=== PATIENT | female | born 1945 | race Caucasian/White ===

== ENCOUNTER 2016-12-14 10:44 | Emergency (ER) | payer MEDICARE ==
[2016-12-14 10:59] VITALS: BP 116/55
--- NOTE | 2016-12-14 12:10 | UC ---
Respiratory Complaint HPI - HPI Summary HPI Summary: C/O URI SX FOR ABOUT A WEEK - ST, COUGH, PND. NO FEVER. LAST NIGHT WOKE UP 1: 30AM WITH SEVERE, SHARP RIGHT SIDED PLEURITIC CHEST PAIN. EASED UP WITH IBUPROFEN. PT CONCERNED FOR PNA. FORMER SMOKER. REPORTS SHE HAS WHEEZING AT BASELINE BUT DOES NOT USE ANY INHALERS OR BREATHING TX. DOES NOT FEEL SOB. DOES NOT USE O2 THERAPY. STATES HER O2 SAT IS PROBABLY LOW 90S AT BASELINE. - History of Current Complaint Chief Complaint: UCChestPain Stated Complaint: SOB COPD UPPER RT CHEST PAIN Time Seen by Provider: 12/14/16 10:49 Hx Obtained From: Patient Onset/Duration: Gradual Onset, Lasting Days, Still Present Timing: Constant Severity Initially: Moderate Severity Currently: Moderate Pain Intensity: 3 Pain Scale Used: 0-10 Numeric Character: Cough: Nonproductive Aggravating Factors: Nothing Alleviating Factors: Nothing Associated Signs And Symptoms: Positive: Pleuritic Chest Pain, Wheezing, URI, Nasal Congestion. 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 Denies: Hypertension Respiratory History Of: Reports: COPD Denies: Asthma GI/ History Of: Denies: Ulcer, Renal Disease - Surgical History Surgical History: Yes Surgery Procedure, Year, and Place: colostomy, appendectomy, hernia repair - Family History Known Family History: Negative: Cardiac Disease, Hypertension, Diabetes - Social History Alcohol Use: None Substance Use Type: None Smoking Status (MU): Former Smoker Type: Cigarettes Review of Systems Constitutional: Negative Respiratory: Cough, Other - PLEURITIC PAIN Cardiovascular: Negative Gastrointestinal: Negative All Other Systems Reviewed And Are Negative: Yes Physical Exam Triage Information Reviewed: Yes Appearance: Well-Appearing, No Pain Distress, Well-Nourished Vital Signs: Initial Vital Signs Temp 97.6 F 12/14/16 10:50 Pulse 77 12/14/16 10:50 Resp 22 12/14/16 10:50 BP 116/55 12/14/16 10:50 Pulse Ox 93 12/14/16 10:50 Vital Signs Reviewed: Yes Eyes: Positive: Conjunctiva Clear ENT: Positive: Hearing grossly normal Neck: Positive: Supple, Nontender, No Lymphadenopathy Respiratory Exam: Normal Cardiovascular Exam: Normal Abdomen Description: Positive: Soft Musculoskeletal: Positive: No Edema Neurological: Positive: Alert Psychological: Positive: Age Appropriate Behavior Skin: Negative: rashes UC Diagnostic Evaluation - Laboratory O2 Sat by Pulse Oximetry: 93 - Radiology Xray Interpretation: No Acute Changes - CXR SHOWS COPD Radiology Interpretation Completed By: Radiologist Respiratory Course/Dx - Differential Dx/Diagnosis Provider Diagnoses: ACUTE URI, PLEURITIC PAIN Discharge - Discharge Plan Condition: Stable Disposition: HOME Prescriptions: Azithromycin [Azithromycin 500 MG TAB] 500 mg PO DAILY #5 tab Patient Education Materials: Upper Respiratory Infection (ED), COPD (Chronic Obstructive Pulmonary Disease) (ED) Referrals: Tho Bates MD [Primary Care Provider] - If Needed Additional Instructions: YOU LIKELY HAVE A VIRAL UPPER RESPIRATORY INFECTION. GIVEN YOUR UNDERLYING LUNG CONDITION IT WOULD NOT BE UNREASONABLE TO COVER YOU WITH ANTIBIOTICS. IF YOU CHOOSE TO START THE MEDICINE TAKE IT FOR THE FULL 5 DAYS. SEEK FOLLOW-UP IF YOU ARE NOT IMPROVING EXPECTED OVER THE NEXT 1-2 WEEKS.
--- NOTE | 2016-12-14 12:45 | RAD ---
INDICATION: Cough, right-sided pleuritic chest pain. COMPARISON: Comparison is made with a prior CT of the abdomen and pelvis from September 18, 2016. TECHNIQUE: Dual-energy PA and lateral views of the chest were obtained. FINDINGS: The heart is within normal limits in size. Mediastinal and hilar contours appear within normal limits. The lungs are hyperinflated and clear. No pleural effusion or pneumothorax is seen. IMPRESSION: FINDINGS CONSISTENT WITH COPD, NO EVIDENCE FOR ACUTE FINDING.
== END 2016-12-14 13:05 | disposition home or self-care (01) ==
LOC: UCEAST 10:44
DX: J06.9 Acute upper respiratory infection, unspecified (principal); R07.1 Chest pain on breathing; J44.9 Chronic obstructive pulmonary disease, unspecified; Z87.891 Personal history of nicotine dependence; I37.0 Nonrheumatic pulmonary valve stenosis
CPT/HCPCS: 71020; 93005; 99211; G0463